=== PATIENT | male | born 1960 | race Caucasian/White ===

== ENCOUNTER 2022-08-21 11:12 | Emergency (ER) | payer SELFPAY ==
[2022-08-21] MEDS ORDERED: Lidocaine 1% (PF) 30 ML VIAL ONE (11:33)
[2022-08-21] MEDS ORDERED: Bacitracin 1 PK ONE (12:23)
== END 2022-08-21 12:46 | disposition home or self-care (01) ==
LOC: NAV ERS 11:12
DX: S01.81XA Laceration without foreign body of other part of head, initial encounter (principal); F17.290 Nicotine dependence, other tobacco product, uncomplicated; X58.XXXA Exposure to other specified factors, initial encounter
CPT/HCPCS: 12011; J2001

== ENCOUNTER 2022-09-12 15:01 | Emergency (ER) | payer SELFPAY | END 2022-09-12 15:21 | disposition home or self-care (01) | LOC: NAV ERS 15:01 | DX: S01.81XD Laceration without foreign body of other part of head, subsequent encounter (principal); F17.290 Nicotine dependence, other tobacco product, uncomplicated; X58.XXXD Exposure to other specified factors, subsequent encounter ==